=== PATIENT | male | born 1965 | race Caucasian/White ===

== ENCOUNTER → 2016-06-28 | Day surgery (SDC) | payer OTHER ==
[~2016-06-28] VITALS: Ht 180.3 cm; Wt 136.4 kg
[~2016-06-28] MED LIST: ASPIRIN EC81 MG PO; DEMADEX20 MG PO; FEOSOL325 MG PO; HUMALOG KW200 UNIT/1 SUB-Q; LASIX20 MG PO; LEVOTHROID (SY50 MCG PO; LIPITOR20 M1 PO; NORCO 5-325 TA1 EACH PO; PARAFON FORTE500 MG PO; PERCOCET 5-3251 EACH PO; PHOSLO667 MG PO; PROCARDIA XL60 MG PO; SODIUM BICARBO650 MG PO; TOPROL XL100 MG PO; TOUJEO SOL300 UNIT/1 SUB-Q; WAL-FINATE4 MG PO; ZAROXOLYN2.5 MG PO
--- NOTE | ~2016-06-28 | OR ---
PATIENT'S NAME: MILTON RAMIREZ [facility] AGE: 50 Y [address] ROOM: [place] [address] LOCATION: [facility] ADMIT DATE: 06/28/2016 OR/Procedure Report DISCHARGE DATE: FAMILY PHYSICIAN: Kirby Lang MD ATTENDING PHYSICIAN: JOHNNY RINALDI SURGEON: Johnny Rinaldi MD TUTORING CLINICIAN: DATE OF PROCEDURE: 06/28/2016 PREOPERATIVE DIAGNOSIS: End-stage renal disease. POSTOPERATIVE DIAGNOSIS: End-stage renal disease. PROCEDURES: Left arm brachiocephalic AV fistula. FLORAL DESIGN TEACHER: ALFA Justice. ANESTHESIA: Nerve block. ESTIMATED BLOOD LOSS: 10 mL. OPERATIVE FINDINGS: Good thrill and bruit at the end of the case. Strong radial and ulnar signals at the end of the case. DESCRIPTION OF PROCEDURE: The patient was brought to the operating room, placed supine on the operating room table, prepped and draped in a sterile manner. Preoperative time-out was performed. The patient received preoperative antibiotics. We made a standard incision 2 cm proximally to the antecubital fossa, dissected down the fascia, incised the fascia in a longitudinal manner. Dissected out the brachial artery. We then dissected out the antecubital branch of the cephalic vein in a 360-degree fashion. We placed a clip distally and transected it. We gave 5000 units of heparin. We clamped proximally and distally on the artery and made an arteriotomy to a size of 4 mm using an 11 blade as well as Green scissors. We then did a standard 6-0 Prolene anastomosis from the vein to the artery. We removed the clamps. There was excellent flow into the fistula with a strong palpable bruit. There was a strong radial and ulnar signal at the end of the case. Heparin was reversed with the use of protamine. Deep layers were closed with 2-0 and 3-0 Vicryl. Thrombin was used locally in the wound, and the skin was closed with a running 4-0 Monocryl. The patient tolerated the procedure well and was transferred to recovery room and home later that day. PATIENT'S NAME: MILTON RAMIREZ [facility] AGE: 50 Y [address] ROOM: [place] [address] LOCATION: [facility] ADMIT DATE: 06/28/2016 OR/Procedure Report DISCHARGE DATE: FAMILY PHYSICIAN: Kirby Lang MD ATTENDING PHYSICIAN: JOHNNY RINALDI MD FKM/modl /[id number] d: 06/28/162018 t: 07/02/16 1200, OPERATIVE SUMMARY
[2016-06-28 07:02] LABS: BASOPHIL # 0.1 K/uL (0.0-0.2); BASOPHIL % 0.6 %; EOSINOPHIL # 0.7 K/uL (0.0-0.5); EOSINOPHIL % 7.8 %; HEMATOCRIT 31.4 % (37.0-53.0); HEMOGLOBIN 9.7 g/dL (12.0-17.0); IMMATURE GRANULOCYTE % 0.3 %; LYMPHOCYTE # 1.4 K/uL (0.8-4.0); LYMPHOCYTE % 15.7 %; MCHC 30.9 gm/dL (32.0-36.5); MCV 90.5 fl (83.0-98.0); MONOCYTE % 11.4 %; NEUTROPHIL # (ANC) 5.8 K/uL (1.4-9.0); NEUTROPHIL % 64.2 %; NRBC % 0 /100WBC (0-0.00); PLATELET COUNT 207 K/uL (150-450); RBC 3.47 M/uL (4.00-6.00); RDW-CV 15.6 % (11.9-14.6)
[2016-06-28 07:22] LABS: ALBUMIN 2.9 gm/dL (3.5-5.0); ANION GAP 12.7 (10.0-19.0); CALCIUM 8.5 mg/dL (8.5-10.5); CREATININE 3.8 mg/dL (0.6-1.3); POTASSIUM 3.7 mMol/L (3.7-5.1); TOTAL BILIRUBIN 0.4 mg/dL (0.0-1.5); TOTAL PROTEIN 6.9 g/dL (6.0-8.4)
== END | disposition disaster alternative care site (69) ==
LOC: GPOC 06-25 11:00 → GSDC 06:09 → GPOC 06:30
PROVIDERS: Surgery Vascular Surgery
PROC: 03170JF Bypass Right Brachial Artery to Lower Arm Vein with Synthetic Substitute, Open Approach (ICD-10-PCS; principal; 2016-06-28)
DX: E11.22 Type 2 diabetes mellitus with diabetic chronic kidney disease (principal); I12.0 Hypertensive chronic kidney disease with stage 5 chronic kidney disease or end stage renal disease; N18.6 End stage renal disease; E11.319 Type 2 diabetes mellitus with unspecified diabetic retinopathy without macular edema; E78.5 Hyperlipidemia, unspecified; F17.220 Nicotine dependence, chewing tobacco, uncomplicated; E66.01 Morbid (severe) obesity due to excess calories; Z68.41 Body mass index [BMI] 40.0-44.9, adult; Z79.899 Other long term (current) drug therapy
CPT/HCPCS: J0690; J1644; J2250; J2720; J7030